=== PATIENT | female | born 1995 | race Caucasian/White ===

== ENCOUNTER 2020-06-25 09:01 | Emergency (ER) | payer OTHER, SELFPAY ==
[2020-06-25 09:17] VITALS: BP 123/68; PULSE 74; RESP 17; TEMP 36.5; O2SAT 100
[2020-06-25 09:29] LABS: Basophils Absolute Auto 0.1 K/mm3 (0.0-0.1); Basophils Percent Auto 0.6 % (0.2-1.2); Eosinophils Absolute Auto 0.4 K/mm3 (0-0.3); Eosinophils Percent Auto 5.3 % (0-4.4); Hematocrit 42.7 % (37.0-47.0); Hemoglobin 14.4 g/dL (12.0-15.0); Immature Granulocyte Absolute 0.03 K/mm3 (0.00-0.031); Immature Granulocyte Percent A 0.4 % (0-0.5); Lymphocytes Percent Auto 37.4 % (18.3-44.2); Mean Corpuscular HGB Conc 33.7 g/dl (32-36); Mean Corpuscular Hemoglobin 29.5 pg (26-34); Mean Corpuscular Volume 87.5 fl (80-100); Mean Platelet Volume 10.1 fl (7.4-10.4); Monocytes Absolute Auto 0.5 K/mm3 (0.1-0.6); Monocytes Percent Auto 6.4 % (2.6-8.5); Neutrophils Absolute Auto 4.1 K/mm3 (1.3-6.7); Neutrophils Percent Auto 49.9 % (45.5-73.1); Platelet Count Result 282 k/mm3 (150-375); Red Blood Count 4.88 M/mm3 (4.2-5.4); Red Cell Distribution Width 12.8 % (11.5-14.5); White Blood Count 8.3 K/mm3 (4.5-10.0)
[2020-06-25 09:33] LABS: Alanine Aminotransferase 73 U/L (4-35); Albumin Level 4.3 g/dL (3.5-5.1); Alkaline Phosphatase 41 U/L (38-126); Anion Gap 6 mmol/L (8-16); Aspartate Amino Transferase 62 U/L (14-36); Bilirubin,Total 0.3 mg/dL (0.2-1.3); Blood Urea Nitrogen 10 mg/dL (7-17); Calcium 9.2 mg/dL (8.4-10.2); Carbon Dioxide 29 mmol/L (22-30); Chloride 104 mmol/L (98-107); Estimated Glomerular Filt Rate > 60; Glucose 99 mg/dL (65-105); Lipase 124 U/L (23-300); Potassium 3.9 mmol/L (3.4-5.0); Sodium 139 mmol/L (137-145)
[2020-06-25] MEDS: SODIUM CHLORIDE 0.9% IV 1,000 ML 999 ML IV CONT (09:33)
[2020-06-25] MEDS: ONDANSETRON INJ 4 MG/2 ML VIAL IV PUSH (09:33)
[2020-06-25] MEDS: FAMOTIDINE 20 MG/2 ML VIAL IV PUSH (09:33)
--- NOTE | 2020-06-25 09:33 | ED.GENADULT ---
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 Patient saw her primary care doctor for this and had a virtual visit but feels as though she did not get any answers patient denies similar occurrence in the past. . On arrival patient notes continued nausea but denies pain and does not appear distressed or uncomfortable Related Data Home Medications Medication Instructions Recorded Confirmed lamotrigine 06/25/20 promethazine 06/25/20 Allergies Allergy/AdvReac Type Severity Reaction Status Date / Time hydrocodone Allergy Mild HIVES Verified 06/25/20 09:23 ciprofloxacin AdvReac Mild VOMITING Verified 06/25/20 09:23 Review of Systems Review of Systems: All systems reviewed & are unremarkable except as noted in HPI and below PMFSH Past Medical History Medical History (Updated 06/25/20 @ 10:42 by Matt Barkley PA-C) Obesity Surgical History Surgical History (Updated 06/25/20 @ 09:36 by Matt Barkley PA-C) S/P laparoscopic procedure Social History Social History (Updated 06/25/20 @ 09:36 by Matt Barkley PA-C) Tobacco type: e-cigarettes/vaping Gender identity (if verbalized by the patient): Female Exam Narrative: Exam Narrative: GENERAL: Well-appearing, obese, and in no acute distress. HEAD: Normocephalic, atraumatic. EYES: PERRLA and EOMI. ENT: Nares clear, no rhinorrhea or epistaxis. Mucous membranes moist. CHEST: Clear to auscultation. No respiratory distress. No wheezes rales or rhonchi HEART: Regular rate and rhythm. No murmur heard. Normal peripheral pulses. ABDOMEN: Soft, nontender, nondistended EXTREMITIES: Normal range of motion. No edema. SKIN: Warm, dry, no rash. NEURO: No focal deficits. Alert and oriented x3. PSYCH: Normal mood and affect. Course Course Emergency Course: Patient in the room at this time no distress no high risk changes in the imaging will be given requested gynecological consult as well as advised to follow with primary care given reasons to return and agrees to do so if symptoms worsen felt appropriate for outpatient reevaluation Vital Signs Vital signs: Vital Signs Temperature 97.7 F 06/25/20 09:17 Pulse Rate 74 06/25/20 09:17 Respiratory Rate 17 06/25/20 09:17 Blood Pressure 123/68 06/25/20 09:17 Pulse Oximetry 100 06/25/20 09:17 Temperature 97.7 F 06/25/20 09:17 Pulse Rate 74 06/25/20 09:17 Respiratory Rate 17 06/25/20 09:17 Blood Pressure 123/68 06/25/20 09:17 Pulse Oximetry 100 06/25/20 09:17 Medical Decision Making MDM Narrative Medical decision making narrative: Patient with nausea of unknown etiology nontender abdominal exam no high risk changes in the blood work felt appropriate for outpatient reevaluation with primary care and gynecology afebrile nontoxic-appearing no distress ABCs intact vital signs stable Vital Signs Vital Signs: Vital Signs Temperature 97.7 F 06/25/20 09:17 Pulse Rate 74 06/25/20 09:17 Respiratory Rate 17 06/25/20 09:17 Blood Pressure 123/68 06/25/20 09:17 Pulse Oximetry 100 06/25/20 09:17 Temperature 97.7 F 06/25/20 09:17 Pulse Rate 74 06/25/20 09:17 Respiratory Rate 17 06/25/20 09:17 Blood Pressure 123/68 06/25/20 09:17 Pulse Oximetry 100 06/25/20 09:17 Lab Data Result diagrams: 06/25/20 09:15
[2020-06-25 09:59] LABS: Add Urine Microscopic? YES; Appearance Urine Cloudy (Clear); Bacteria Urine Trace /hpf; Bilirubin Urine Negative (Negative); Blood Urine Negative (Negative); Color Urine Yellow (Yellow); Glucose Urine UA Negative (Negative); Ketones Urine Negative (Negative); Leukocyte Esterase Ur Negative LEU/UL (Negative); Mucus Urine Rare /lpf; Nitrate Urine Negative (Negative); Protein Urine 1+ mg/dL (Negative); Squamous Epithelial Cell Urine Many /hpf (Few); Urobilinogen Urine Negative mg/dL (<2.0)
[2020-06-25 10:55] VITALS: BP 114/62; PULSE 68; RESP 16; O2SAT 100
== END 2020-06-25 10:56 | disposition home or self-care (01) ==
PROVIDERS: Emergency Provider Family Medicine; PCP Family Medicine
DX: R10.9 Unspecified abdominal pain (principal); E66.9 Obesity, unspecified
CPT/HCPCS: 36415; 80053; 81001; 81025; 83690; 85025; 96361; 96374; 96375; 99284; J2405; J7030

== ENCOUNTER 2022-05-20 22:45 | Emergency (ER) | payer OTHER, SELFPAY ==
--- NOTE | ~2022-05-20 | XR_ITS ---
EXAMINATION: XR wrist RT min 3V, XR hand RT min 3V DATE: 05/20/2022 23:34 INDICATION: Severe right hand and wrist pain post fall onto outstretched hand TECHNIQUE: 1. Posteroanterior, ulnar deviation, oblique, and lateral views of the right wrist were obtained. 2. Dorsal palmar, oblique and lateral views of the right hand were obtained. COMPARISON: None. FINDINGS: Alignment of the right hand and wrist are normal. No fracture identified. Joint spaces are normal. No focal soft tissue swelling. IMPRESSION: 1. Negative right hand and wrist radiographs. Reviewed, dictated and finalized at location [facility]. [facility] IMPRESSION: 1. Negative right hand and wrist radiographs.
--- NOTE | ~2022-05-20 | XR_ITS ---
EXAMINATION: XR foot RT min 3V DATE: 05/20/2022 23:35 INDICATION: Right foot pain. TECHNIQUE: 4 views of right foot were obtained. COMPARISON: None. FINDINGS: There is plate and screw fixation of distal fibula. Bone alignment is normal. No acute frac ture. There is mild osteoarthritis of first metatarsophalangeal joint, talonavicular joint, and fifth proximal interphalangeal joint. There is heterotopic ossification lateral to third proximal interpha langeal joint. There is an enthesophyte at posterior aspect of calcaneal tuberosity. IMPRESSION: 1. Mild polyarticular osteoarthritis. Reviewed, dictated and finalized at location [facility]. [employer]
[2022-05-20 22:48] VITALS: BP 110/73; PULSE 97; RESP 20; TEMP 36.8; O2SAT 95
[2022-05-20] MEDS: IBUPROFEN 400 MG TABLET 800 MG PO (23:42)
--- NOTE | 2022-05-20 23:45 | ED.UPPEXIN ---
HPI - Extremity Injury (Upper) General Chief Complaint: Extremity Injury, Upper Stated Complaint: right hand and foot pain Time Seen by Provider: 05/20/22 22:47 Source: patient and RN notes reviewed Mode of arrival: ambulatory Limitations: no limitations History of Present Illness HPI narrative: right foot pain complaint: injury to: right, wrist and hand Onset (ago): hour(s) (3) Other injuries: none Place: outdoors Severity: mild Severity scale (1-10): 3 Relieving factors: none Exacerbating factors: movement of extremity Context: fall Associated symptoms: denies other symptoms Related Data Home Medications Medication Instructions Recorded Confirmed cyclobenzaprine 10 mg tablet 10 mg PO PRN PRN Muscle Spasm 05/20/22 05/27/22 dulaglutide 1.5 mg/0.5 mL 1.5 mg subcut WEEKLY 05/20/22 05/27/22 subcutaneous pen injector (Trulicity) Allergies Allergy/AdvReac Type Severity Reaction Status Date / Time hydrocodone Allergy Mild HIVES Verified 05/27/22 01:52 ciprofloxacin AdvReac Mild VOMITING Verified 05/27/22 01:52 Review of Systems Review of Systems: All systems reviewed & are unremarkable except as noted in HPI and below Constitutional: Constitutional: Reports no additional constitutional complaints Eyes: Eyes: Reports no additional eye complaints ENT: Reports system reviewed and no additional complaints, except as documented Cardiovascular: Cardiovascular: Reports no additional cardiovascular complaints Respiratory: Respiratory: Reports no additional respiratory complaints Gastrointestinal: Gastrointestinal: Reports no additional gastrointestinal complaints Genitourinary: Genitourinary: Reports no additional female genitourinary complaints Musculoskeletal: Musculoskeletal: Reports no additional musculoskeletal complaints and Reports arthralgias Integumentary/Breasts: Skin/Breast: Reports system reviewed and no additional complaints, except as docu Neurologic: Reports system reviewed and no additional complaints, except as documented Psychiatric: Psychiatric: Reports no additional psychiatric complaints Endocrine: Endocrine: Reports no additional endocrine complaints Hematologic/Lymphatic: Hematologic/Lymphatic: Reports no additional hematologic/lymphatic complaints Allergic/Immunologic: Allergic/Immunologic: Reports no additional allergic/immunologic complaints [facility] Past Medical History Medical History Contusion of right foot Contusion of right hand Migraine Obesity Sprain of right wrist Surgical History Surgical History S/P laparoscopic procedure Social History Social History Smoking status: Current every day smoker Tobacco type: e-cigarettes/vaping Gender identity (if verbalized by the patient): Female Exam Const: General: no acute distress and well nourished Nutritional Appearance: well nourished Orientation/consciousness: patient oriented x3 Limitations: no limitations HENMT: Head: normal to inspection Ears: external ears normal, TM's normal bilaterally and EAC's normal Face/Nose/Sinus: Normal external nose present, Normal nares present, normal facial exam and sinuses nontender Face and sinus: normal facial exam and sinuses nontender Mouth: Yes Normal oral and palatal mucosa present and Yes moist mucous membranes Teeth and gingiva: dentition normal Throat: posterior oropharynx normal Eyes: Conjunctivae: conjunctivae normal Pupils: Equal, round and reactive pupils present EOM: EOMs intact bilaterally Neck: Neck: normal visual inspection, no lymphadenopathy and no meningeal signs Chest: Chest palpation & inspection: normal inspection of the chest Resp: Effort & Inspection: normal respiratory effort Auscultation: clear to auscultation bilaterally Cardio: Rate: regular rate Rhythm: regular rhythm
[2022-05-21 00:04] VITALS: BP 110/73; PULSE 97; RESP 20; TEMP 37.1; O2SAT 95
== END 2022-05-21 00:10 | disposition home or self-care (01) ==
PROVIDERS: Emergency Provider Emergency Medicine; PCP Family Medicine
DX: S63.501A Unspecified sprain of right wrist, initial encounter (principal); S60.221A Contusion of right hand, initial encounter; S90.31XA Contusion of right foot, initial encounter
CPT/HCPCS: 73110; 73130; 73630; 99284; A4565; A9270

== ENCOUNTER 2022-05-27 01:47 | Emergency (ER) | payer OTHER, SELFPAY ==
[2022-05-27 01:47] VITALS: BP 122/70; PULSE 100; RESP 20; TEMP 36.1; O2SAT 97
--- NOTE | 2022-05-27 02:03 | ED.HA ---
HPI - Headache General Chief Complaint: Headache Stated Complaint: pain Source: patient Mode of arrival: ambulatory Limitations: no limitations History of Present Illness HPI Narrative: this is a 27-year-old female with a history of migraines presents with some migraine headache right-sided throbbing sensitive to light and sound with some some nausea with no vomiting there is no shortness of breath no chest pain no abdominal pain no neck stiffness no fever chills. MD elicited complaint: migraine Onset (ago): hour(s) Related Data Home Medications Medication Instructions Recorded Confirmed cyclobenzaprine 10 mg tablet 10 mg PO PRN PRN Muscle Spasm 05/20/22 05/27/22 dulaglutide 1.5 mg/0.5 mL 1.5 mg subcut WEEKLY 05/20/22 05/27/22 subcutaneous pen injector (Trulicity) Allergies Allergy/AdvReac Type Severity Reaction Status Date / Time hydrocodone Allergy Mild HIVES Verified 05/27/22 01:52 ciprofloxacin AdvReac Mild VOMITING Verified 05/27/22 01:52 Review of Systems Review of Systems: All systems reviewed & are unremarkable except as noted in HPI and below PMFSH Past Medical History Medical History Migraine Obesity Surgical History Surgical History S/P laparoscopic procedure Social History Social History Smoking status: Current every day smoker Tobacco type: e-cigarettes/vaping Gender identity (if verbalized by the patient): Female Exam Const: General: healthy appearing Nutritional Appearance: well nourished Orientation/consciousness: patient oriented x3 Limitations: no limitations HENMT: Head: normal to inspection Face and sinus: normal facial exam Mouth: Yes Normal oral and palatal mucosa present Eyes: Conjunctivae: conjunctivae normal EOM: EOMs intact bilaterally Neck: Neck: normal visual inspection Chest: Chest palpation & inspection: normal inspection of the chest Resp: Effort & Inspection: normal respiratory effort Cardio: Rate: regular rate Rhythm: regular rhythm GI: GI Palp: Yes Soft to palpation Urinary Catheter: Urinary Catheter: patent and draining Back/Spine/Pelvis: Back: no CVA tenderness Skin: General skin exam: normal color Rashes: no rashes Wounds: no wounds Neuro: General: patient oriented x3, moves all extremities, no meningeal signs and no focal motor deficits Cranial nerves: Yes Nystagmus not present Speech: normal speech Gait exam (Neuro): Normal gait present Extrem: General: normal to inspection, no clubbing, cyanosis or edema and no pedal edema Psych: Mental Status: mental status grossly normal Affect: normal affect Attitude: cooperative Course Course Emergency Course: patient received IV fluids Toradol along with Reglan and Benadryl IV. Vital Signs Vital signs: Vital Signs Temperature 36.1 C L 05/27/22 01:47 Pulse Rate 100 05/27/22 01:47 Respiratory Rate 20 05/27/22 01:47 Blood Pressure 122/70 05/27/22 01:47 Pulse Oximetry 97 05/27/22 01:47 Oxygen Delivery Room Air 05/27/22 01:47 Temperature 36.1 C L 05/27/22 01:47 Pulse Rate 100 05/27/22 01:47 Respiratory Rate 20 05/27/22 01:47 Blood Pressure 122/70 05/27/22 01:47 Pulse Oximetry 97 05/27/22 01:47 Oxygen Delivery Room Air 05/27/22 01:47 Critical Care Time Critical Care Time Critical Care Time: No Discharge Plan Discharge Clinical Impression: Migraine Qualifiers: Migraine type: unspecified Status migrainosus presence: without status migrainosus Intractability: not intractable Qualified Code(s): G43.909 - Migraine, unspecified, not intractable, without status migrainosus Patient Disposition: Home, Self-Care Condition: Stable Instructions: Antibiotic Form, Migraine Headache (ED) Additional Instructions: Take medicine as prescribed and follow-up with araceli
[2022-05-27] MEDS: SODIUM CHLORIDE 0.9% IV 500 ML 999 ML IV CONT (02:15)
[2022-05-27] MEDS: diphenhydrAMINE HCl INJ 50 MG/ML VIAL 25 MG IV PUSH (02:16)
[2022-05-27] MEDS: KETOROLAC 30 MG/ML VIAL (*BKC) IV PUSH (02:20)
[2022-05-27] MEDS: METOCLOPRAMIDE HCL INJ 10 MG/2 ML VIAL IV PUSH (02:20)
[2022-05-27 03:03] VITALS: BP 112/55; PULSE 94; RESP 20; TEMP 36.8; O2SAT 96
== END 2022-05-27 03:07 | disposition home or self-care (01) ==
PROVIDERS: Emergency Provider Emergency Medicine; PCP Family Medicine
DX: G43.909 Migraine, unspecified, not intractable, without status migrainosus (principal)
CPT/HCPCS: 96361; 96374; 96375; 99284; J1200; J1885; J2765; J7040

== ENCOUNTER 2022-11-12 13:47 | Emergency (ER) | payer OTHER, SELFPAY ==
[2022-11-12 13:50] VITALS: BP 125/70; PULSE 95; RESP 18; TEMP 36.7; O2SAT 96
--- NOTE | 2022-11-12 13:52 | ED.DIZZY ---
HPI - Dizziness General Chief Complaint: Dizziness Stated Complaint: dizziness/low BS Time Seen by Provider: 11/12/22 13:50 Source: patient Mode of arrival: ambulatory Limitations: no limitations History of Present Illness HPI Narrative: 27-year-old female so, smoker with a history of obesity, diabetes mellitus, bipolar disorder, anxiety, migraine presents to the ER with -- dizziness, This is worst when she stands up. No other neuro deficits. No ear complaints. -- low blood sugars of 75 -- last menstrual period was 29 days ago. She is sexually active without any protection. MD elicited complaint: dizziness and lightheadedness Onset (ago): hour(s) ( Started this morning) Timing: sudden onset Severity: moderate Description: lightheadedness History of similar symptoms: Yes Exacerbating factors: change in body position Relieving factors: nothing Associated symptoms: denies other symptoms Related Data Home Medications Medication Instructions Recorded Confirmed dulaglutide 1.5 mg/0.5 mL 1.5 mg subcut WEEKLY 05/20/22 11/12/22 subcutaneous pen injector (Trulicity) vitamin with calcium 1 tablet PO DAILY 11/12/22 11/12/22 no.72-iron 27 mg-folic acid 1 mg tablet (M- Plus) venlafaxine 37.5 mg 75 mg PO DAILY 11/12/22 11/12/22 capsule,extended release 24 hr Allergies Allergy/AdvReac Type Severity Reaction Status Date / Time hydrocodone Allergy Mild HIVES Verified 05/27/22 01:52 ciprofloxacin AdvReac Mild VOMITING Verified 05/27/22 01:52 Review of Systems Review of Systems: All systems reviewed & are unremarkable except as noted in HPI and below Constitutional: Constitutional: Reports as per HPI and Reports no additional constitutional complaints Eyes: Eyes: Reports as per HPI and Reports no additional eye complaints ENT: Reports system reviewed and no additional complaints, except as documented and Reports as per HPI Cardiovascular: Cardiovascular: Reports as per HPI and Reports no additional cardiovascular complaints Respiratory: Respiratory: Reports as per HPI and Reports no additional respiratory complaints Gastrointestinal: Gastrointestinal: Reports as per HPI and Reports no additional gastrointestinal complaints Musculoskeletal: Musculoskeletal: Reports no additional musculoskeletal complaints and Reports as per HPI Integumentary/Breasts: Skin/Breast: Reports system reviewed and no additional complaints, except as docu and Reports as per HPI Neurologic: Reports system reviewed and no additional complaints, except as documented, Reports as per HPI and Reports dizziness Psychiatric: Psychiatric: Reports no additional psychiatric complaints and Reports as per HPI Endocrine: Endocrine: Reports no additional endocrine complaints and Reports as per HPI Hematologic/Lymphatic: Hematologic/Lymphatic: Reports no additional hematologic/lymphatic complaints and Reports as per HPI Allergic/Immunologic: Allergic/Immunologic: Reports no additional allergic/immunologic complaints and Reports as per HPI [facility] Past Medical History Medical History Contusion of right foot Contusion of right hand Migraine Obesity Sprain of right wrist Surgical History Surgical History S/P laparoscopic procedure Social History Social History Smoking status: Current every day smoker Tobacco type: e-cigarettes/vaping Gender identity (if verbalized by the patient): Female Exam Narrative: not orthostatic Const: General: healthy appearing Nutritional Appearance: obese Orientation/consciousness: patient oriented x3 Limitations: no limitations HENMT: Head: normal to inspection Ears: TM's normal bilaterally Face/Nose/Sinus: Normal external nose present Face and sinus: normal facial exam Mouth: Yes Normal oral and palatal mucos
[2022-11-12 14:05] VITALS: BP 119/74; BP 119/76; PULSE 113; PULSE 80; O2SAT 97; O2SAT 98
--- NOTE | 2022-11-12 14:07 | ECG_ITS ---
Measurements Intervals [place] Rate: 83 P: 33 IN: 151 QRS: -43 QRSD: 112 T: 4 QT: 368 QTc: 433 Interpretive Statements SINUS RHYTHM LEFT AXIS DEVIATION INCOMPLETE RIGHT BUNDLE BRANCH BLOCK POOR R WAVE PROGRESSION, ANTERIOR LEADS BORDERLINE T WAVE ABNORMALITY- ANTERIOR LEADS BORDERLINE ECG NO PREVIOUS ECG AVAILABLE FOR COMPARISON Electronically Signed On 11-12-2022 15:07:24 CDT by Roger Khan D.O.
[2022-11-12 14:27] LABS: Basophils Absolute Auto 0.04 K/mm3 (0.00-0.10); Basophils Percent Auto 0.4 % (0.0-1.0); Eosinophils Absolute Auto 0.13 K/mm3 (0.02-0.50); Eosinophils Percent Auto 1.3 % (1.0-6.0); Hematocrit 44.1 % (35.0-49.0); Hemoglobin 14.7 g/dL (12.0-15.0); Immature Granulocyte Absolute 0.04 K/mm3 (0.00-0.00); Immature Granulocyte Percent A 0.4 % (0.0-0.0); Lymphocytes Absolute Auto 2.03 K/mm3 (1.10-4.50); Lymphocytes Percent Auto 20.7 % (18.0-42.0); Mean Corpuscular HGB Conc 33.3 g/dL (32.0-36.0); Mean Corpuscular Hemoglobin 29.6 pg (27.0-31.0); Mean Corpuscular Volume 88.9 fL (78.0-102.0); Mean Platelet Volume 10.6 fl (9.2-11.8); Monocytes Absolute Auto 0.48 K/mm3 (0.10-0.90); Monocytes Percent Auto 4.9 % (2.0-11.0); Neutrophils Absolute Auto 7.1 K/mm3 (1.7-7.2); Neutrophils Percent Auto 72.3 % (50.0-70.0); Platelet Count Result 266 K/mm3 (150-420); Red Blood Count 4.96 M/mm3 (4.20-5.40); Red Cell Distribution Width 12.6 % (11.6-14.4); White Blood Count 9.8 K/mm3 (4.8-10.8)
[2022-11-12 14:29] LABS: Appearance Urine Clear (Clear); Bilirubin Urine Negative (Negative); Blood Urine Negative (Negative); Color Urine Light Yellow (Yellow); Glucose Urine UA Negative (Negative); Ketones Urine Negative (Negative); Leukocyte Esterase Ur Negative LEU/UL (Negative); Nitrate Urine Negative (Negative); Protein Urine Negative (Negative); Specific Grav Ur 1.015 (1.010-1.020); Urobilinogen Urine 0.2 mg/dL (0.2-1.0)
[2022-11-12 14:34] LABS: Add Urine Microscopic? NO
[2022-11-12 14:36] LABS: Pregnancy On Board Control Positive; Urine Pregnancy Test Negative
[2022-11-12 14:47] LABS: Lactic Acid Reflex 0.7 mmol/L (0.4-2.0)
[2022-11-12 14:53] LABS: Alanine Aminotransferase 35 U/L (14-59); Albumin Level 3.4 g/dL (3.4-5.0); Alkaline Phosphatase 41 U/L (46-116); Anion Gap 10 mmol/L (8-16); Aspartate Amino Transferase 27 U/L (15-37); Bilirubin,Total 0.3 mg/dL (0.00-1.00); Blood Urea Nitrogen 9 mg/dL (7-18); Calcium 8.7 mg/dL (8.5-10.1); Carbon Dioxide 29 mmol/L (21-32); Chloride 101 mmol/L (98-108); Estimated CRCL calculation 129 ml/min; Estimated Glomerular Filt Rate > 60; Glucose 158 mg/dL (70-99); Osmolality Calculated 291 mOsm/kg (285-295); Sodium 140 mmol/L (136-145); Total Protein 7.6 g/dL (6.4-8.2)
[2022-11-12 14:54] LABS: Lipase 34 U/L (16-77)
[2022-11-12 14:54] LABS: Troponin I < 4.0 ng/L (0.00-60.4)
[2022-11-12 15:52] VITALS: BP 117/72; PULSE 85; RESP 18; O2SAT 97
== END 2022-11-12 16:02 | disposition home or self-care (01) ==
PROVIDERS: Emergency Provider Internal Medicine Critical Care Medicine; PCP Family Medicine
DX: R42 Dizziness and giddiness (principal); F17.290 Nicotine dependence, other tobacco product, uncomplicated
CPT/HCPCS: 36415; 80053; 81003; 81025; 82948; 83605; 83690; 84443; 84484; 85025; 93005; 99284

== ENCOUNTER 2023-03-09 20:58 | Emergency (ER) | payer OTHER, SELFPAY ==
[2023-03-09 20:59] VITALS: BP 120/74; PULSE 78; RESP 18; TEMP 37.2; O2SAT 97
--- NOTE | 2023-03-09 21:06 | ED.HA ---
HPI - Headache General Chief Complaint: Headache Stated Complaint: Headache/Light headed/Dizzy Source: patient Mode of arrival: ambulatory Limitations: no limitations History of Present Illness HPI Narrative: 27 year old female presents to the Emergency Department complaining of migraine headache. States she has history of same for past 6 years. Is not on any medication to prevent or abort. States headache started 4 days ago and got worse 4 hours ago. MD elicited complaint: headache and migraine Onset (ago): day(s) (4) Location: other (top of head) Severity: moderate Quality & Timing: similar to previous headaches Exacerbating factors: none Relieving factors: nothing Associated symptoms: other (weak and dizzy) Treatments prior to arrival: none Related Data Home Medications Medication Instructions Recorded Confirmed No Home Medications 03/09/23 03/09/23 Allergies Allergy/AdvReac Type Severity Reaction Status Date / Time hydrocodone Allergy Mild HIVES Verified 05/27/22 01:52 ciprofloxacin AdvReac Mild VOMITING Verified 05/27/22 01:52 Review of Systems Review of Systems: All systems reviewed & are unremarkable except as noted in HPI and below Constitutional: Constitutional: Reports as per HPI, Reports no additional constitutional complaints, Denies chills, Denies fever(s) and Reports weakness Eyes: Eyes: Reports as per HPI and Reports no additional eye complaints ENT: Reports system reviewed and no additional complaints, except as documented Cardiovascular: Cardiovascular: Reports as per HPI and Reports no additional cardiovascular complaints Respiratory: Respiratory: Reports as per HPI and Reports no additional respiratory complaints Gastrointestinal: Gastrointestinal: Reports as per HPI and Reports no additional gastrointestinal complaints Genitourinary: Genitourinary: Reports no additional female genitourinary complaints Musculoskeletal: Musculoskeletal: Reports no additional musculoskeletal complaints Integumentary/Breasts: Skin/Breast: Reports system reviewed and no additional complaints, except as docu Neurologic: Reports system reviewed and no additional complaints, except as documented Psychiatric: Psychiatric: Reports no additional psychiatric complaints Endocrine: Endocrine: Reports no additional endocrine complaints Hematologic/Lymphatic: Hematologic/Lymphatic: Reports no additional hematologic/lymphatic complaints Allergic/Immunologic: Allergic/Immunologic: Reports no additional allergic/immunologic complaints PMFSH Past Medical History Medical History Contusion of right foot Contusion of right hand Migraine Obesity Sprain of right wrist Surgical History Surgical History S/P laparoscopic procedure Social History Social History Smoking status: Current every day smoker Tobacco type: e-cigarettes/vaping Gender identity (if verbalized by the patient): Female Exam Const: General: no acute distress Nutritional Appearance: obese Orientation/consciousness: patient oriented x3 Limitations: no limitations HENMT: Head: normal to inspection Face/Nose/Sinus: Normal external nose present Face and sinus: normal facial exam Mouth: Yes Normal oral and palatal mucosa present Throat: posterior oropharynx normal Eyes: Conjunctivae: conjunctivae normal Pupils: Equal, round and reactive pupils present EOM: EOMs intact bilaterally Direct Ophthalmoscopy: no photophobia Neck: Neck: normal visual inspection and no meningeal signs Chest: Chest palpation & inspection: normal inspection of the chest Resp: Effort & Inspection: normal respiratory effort Auscultation: clear to auscultation bilaterally Cardio: Rate: regular rate Rhythm: regular rhythm Heart sounds: Murmur heart sound present GI: Inspection: non-distended
[2023-03-09 21:07] LABS: Glucose Point of Care 102 mg/dl (65-105)
[2023-03-09] MEDS: METOCLOPRAMIDE HCL INJ 10 MG/2 ML VIAL IV PUSH (21:15)
[2023-03-09] MEDS: diphenhydrAMINE HCl INJ 50 MG/ML VIAL IV PUSH (21:15)
[2023-03-09] MEDS: KETOROLAC 30 MG/ML VIAL (*BKC) IV PUSH (21:15)
[2023-03-09] MEDS: LORazepam INJ (*CRX) 2 MG/ML VIAL 1 MG IV PUSH (21:15)
[2023-03-09 21:39] VITALS: BP 124/69; PULSE 78; RESP 20; TEMP 36.6; O2SAT 96
== END 2023-03-09 21:52 | disposition home or self-care (01) ==
PROVIDERS: Emergency Provider Emergency Medicine; PCP Family Medicine
DX: G43.909 Migraine, unspecified, not intractable, without status migrainosus (principal); F17.290 Nicotine dependence, other tobacco product, uncomplicated
CPT/HCPCS: 82948; 96374; 96375; 99284; J1200; J1885; J2060; J2765

== ENCOUNTER 2023-07-01 21:41 | Emergency (ER) | payer OTHER, SELFPAY ==
[2023-07-01 21:44] VITALS: BP 128/78; PULSE 83; RESP 18; TEMP 36.3; O2SAT 97
[2023-07-01 21:47] LABS: Glucose Point of Care 101 mg/dl (65-105)
--- NOTE | 2023-07-01 21:57 | ED.GENADULT ---
HPI - General Adult General Chief complaint: Recheck/Abnormal Lab/Rx Stated complaint: low blood sugar, nausea Time Seen by Provider: 07/01/23 21:54 Source: patient Mode of arrival: ambulatory Limitations: no limitations History of Present Illness HPI narrative: 28-year-old female with a history of obesity, anxiety, bipolar, migraine, diabetes mellitus was noted to have -- a dizziness/lightheadedness. No focal neuro deficit. No chest pain or palpitation. No shortness of breath. -- blood sugar testing at home noted to be 48. The patient is on 1.5 mg of Trulicity weekly. The patient has had decreased oral intake secondary to nausea. The patient did not eat anything after the low blood sugar. She presented to the ER where she was noted to have a blood sugar of 101. -- Decreased urine output. Bladder scan revealed a urinary volume of 606. -- nausea without any vomiting. Onset (ago): hour(s) ( 1 hour ago) Relieving factors: none Exacerbating factors: none Associated symptoms: loss of appetite and nausea/vomiting Treatments prior to arrival: none Related Data Home Medications Medication Instructions Recorded Confirmed atorvastatin 20 mg tablet 20 mg PO DAILY 07/01/23 07/01/23 dulaglutide 0.75 mg/0.5 mL 0.75 mg subcut WEEKLY 07/01/23 07/01/23 subcutaneous pen injector (Trulicity) venlafaxine 150 mg 150 mg PO DAILY 07/01/23 07/01/23 capsule,extended release 24 hr Allergies Allergy/AdvReac Type Severity Reaction Status Date / Time hydrocodone Allergy Mild HIVES Verified 07/01/23 21:55 ciprofloxacin AdvReac Severe Swelling Verified 07/01/23 21:55 of Lip/Tongue/Throat Review of Systems Review of Systems: All systems reviewed & are unremarkable except as noted in HPI and below Constitutional: Constitutional: Reports no additional constitutional complaints and Reports weakness Eyes: Eyes: Reports as per HPI and Reports no additional eye complaints ENT: Reports system reviewed and no additional complaints, except as documented and Reports as per HPI Cardiovascular: Cardiovascular: Reports as per HPI and Reports no additional cardiovascular complaints Respiratory: Respiratory: Reports as per HPI and Reports no additional respiratory complaints Gastrointestinal: Gastrointestinal: Reports as per HPI, Reports no additional gastrointestinal complaints and Reports nausea Comments: decreased oral intake. No vomiting/ diarrhea. Genitourinary: Genitourinary: Reports no additional female genitourinary complaints and Reports as per HPI Musculoskeletal: Musculoskeletal: Reports no additional musculoskeletal complaints and Reports as per HPI Integumentary/Breasts: Skin/Breast: Reports system reviewed and no additional complaints, except as docu and Reports as per HPI Comments: Multiple petechiae in both lower legs and feet. Neurologic: Reports system reviewed and no additional complaints, except as documented and Reports as per HPI Psychiatric: Psychiatric: Reports no additional psychiatric complaints and Reports as per HPI Endocrine: Endocrine: Reports no additional endocrine complaints and Reports as per HPI Hematologic/Lymphatic: Hematologic/Lymphatic: Reports no additional hematologic/lymphatic complaints and Reports as per HPI Allergic/Immunologic: Allergic/Immunologic: Reports no additional allergic/immunologic complaints and Reports as per HPI PMFSH Past Medical History Medical History Contusion of right foot Contusion of right hand Migraine Obesity Sprain of right wrist Surgical History Surgical History S/P laparoscopic procedure Social History Social History Smoking status: Current every day smoker Tobacco type: e-cigarettes/vaping Gender identity (if verbalized by the patient): Female Exam
[2023-07-01 22:21] LABS: Basophils Absolute Auto 0.05 K/mm3 (0.00-0.10); Basophils Percent Auto 0.5 % (0.0-1.0); Eosinophils Absolute Auto 0.18 K/mm3 (0.02-0.50); Eosinophils Percent Auto 1.9 % (1.0-6.0); Hematocrit 40.2 % (35.0-49.0); Hemoglobin 13.4 g/dL (12.0-15.0); Immature Granulocyte Absolute 0.03 K/mm3 (0.00-0.00); Immature Granulocyte Percent A 0.3 % (0.0-0.0); Lymphocytes Absolute Auto 3.64 K/mm3 (1.10-4.50); Lymphocytes Percent Auto 38.6 % (18.0-42.0); Mean Corpuscular HGB Conc 33.3 g/dL (32.0-36.0); Mean Corpuscular Hemoglobin 29.2 pg (27.0-31.0); Mean Corpuscular Volume 87.6 fL (78.0-102.0); Mean Platelet Volume 9.8 fl (9.2-11.8); Monocytes Absolute Auto 0.52 K/mm3 (0.10-0.90); Monocytes Percent Auto 5.5 % (2.0-11.0); Neutrophils Percent Auto 53.2 % (50.0-70.0); Platelet Count Result 310 K/mm3 (150-420); Red Blood Count 4.59 M/mm3 (4.20-5.40); White Blood Count 9.4 K/mm3 (4.8-10.8)
[2023-07-01 22:31] LABS: SPREG INTERNAL CONTROL Positive; Serum Qual hCG Negative
[2023-07-01 22:37] LABS: Alanine Aminotransferase 47 U/L (14-59); Albumin Level 4.1 g/dL (3.4-5.0); Alkaline Phosphatase 39 U/L (46-116); Anion Gap 7 mmol/L (8-16); Aspartate Amino Transferase 34 U/L (15-37); Bilirubin,Total 0.6 mg/dL (0.00-1.00); Blood Urea Nitrogen 8 mg/dL (7-18); Carbon Dioxide 32 mmol/L (21-32); Chloride 100 mmol/L (98-108); Estimated CRCL calculation 110 ml/min; Estimated Glomerular Filt Rate > 60; Glucose 98 mg/dL (70-99); Osmolality Calculated 286 mOsm/kg (285-295); Potassium 3.2 mmol/L (3.5-5.1); Sodium 139 mmol/L (136-145); Total Protein 7.8 g/dL (6.4-8.2)
[2023-07-01 22:40] LABS: Lactic Acid Reflex 0.8 mmol/L (0.4-2.0)
[2023-07-01 23:09] LABS: Appearance Urine Clear (Clear); Bilirubin Urine Negative (Negative); Blood Urine 2+ (Negative); Color Urine Yellow (Yellow); Glucose Urine UA Negative (Negative); Ketones Urine Negative (Negative); Leukocyte Esterase Ur Negative LEU/UL (Negative); Nitrate Urine Negative (Negative); Protein Urine Trace (Negative); Specific Grav Ur >= 1.030 (1.010-1.020); Urobilinogen Urine 0.2 mg/dL (0.2-1.0); pH Urine 5.5 (5.0-8.0)
[2023-07-01 23:15] LABS: Add Urine Microscopic? YES; RBC Urine 0-2 /hpf (0-2); WBC Urine 0-3 /hpf (0-3)
[2023-07-01 23:16] LABS: Amorphous Sediment Urine Moderate; Bacteria Urine 1+ /hpf; Squamous Epithelial Cell Urine Few /hpf (Few)
--- NOTE | 2023-07-01 23:55 | PC.NURSE ---
UNABLE FOR THIS RN AND ANOTHER RN TO PASS URINARY STRAIGHT CATH (8FR) THRU [facility]. DR BEVERLY AWARE. PATIENT TO FOLLOW UP WITH UROLOGY PLANNED. PATIENT AMBULATORY TO RESTROOM TO TRY TO URINATE AGAIN.
[2023-07-02] MEDS: FAMOTIDINE 20 MG TABLET PO
[2023-07-02] MEDS: GLUCAGON FOR INJ 1 MG VIAL SUB-Q (00:01)
[2023-07-02] MEDS: POTASSIUM CHLORIDE 20 MEQ ER TABLET PO (00:01)
== END 2023-07-02 00:16 | disposition home or self-care (01) ==
PROVIDERS: Emergency Provider Internal Medicine Critical Care Medicine; PCP Family Medicine
DX: R42 Dizziness and giddiness (principal); R33.9 Retention of urine, unspecified; F17.290 Nicotine dependence, other tobacco product, uncomplicated; Z79.899 Other long term (current) drug therapy
CPT/HCPCS: 36415; 80053; 81001; 82948; 83605; 84703; 85025; 96372; 99285; A9270; J1610